=== PATIENT | female | born 1950 | race Caucasian/White ===

== ENCOUNTER 2018-08-31 07:34 | Day surgery (SDC) | payer MEDICARE ==
[~2018-08-31] VITALS: Ht 165.1 cm; Wt 103.0 kg
[~2018-08-31 07:34] MED LIST: LISINOPRIL20 MG PO
--- NOTE | 2018-08-31 10:00 | NUR ---
08/31/18 Aishwarya Harrington 0983 PATIENT ARRIVES TO PACU SLEEPING, AWAKENS WITH VERBAL STIMULI, ANSWERS QUESTIONS APPROPRIATLY. RESP EVEN AND UNLABORED, ROOM AIR SATS >90%.
--- NOTE | 2018-09-01 06:37 | OR ---
[facility] [address], [place] [address] Signed DATE OF OPERATION: 08/31/2018 SURGEON: Janice Nicolas MD PREOPERATIVE DIAGNOSIS: Screening. POSTOPERATIVE DIAGNOSES: 1. Minimal sigmoid diverticulosis. 2. 4 mm polyp at 18 cm (rectosigmoid junction). 3. Minimal internal hemorrhoids. PROCEDURE PERFORMED: Colonoscopy with hot biopsy. ESTIMATED BLOOD LOSS: None. INDICATIONS: Bailey is a 68-year-old female, asked to see me for her initial screening colonoscopy. She has no lower GI complaints. There is no family history of colon cancer or polyps. She has helped her through three prior colonoscopies. Consequently, they are familiar with the whole process. I gave them a pamphlet in the office on colonoscopy and we looked at that together. They understand the risks including, but not limited to gas, bloating, crampy abdominal pain, bleeding, perforation, requiring surgery, and missed diagnosis. They also understand the need for IV conscious sedation. They have expressed understanding and wished to proceed. DESCRIPTION OF PROCEDURE: Bailey was taken into our endoscopy suite and placed in the left lateral decubitus position. She was given 4 mg of Versed and 100 mcg of fentanyl to cover the case. A digital rectal exam was performed. After this, the adult colonoscope was introduced and advanced all around into the cecum under direct visualization of camera without difficulty. Her prep was good. Pictures were taken throughout for photodocumentation. We could easily see the appendiceal orifice and the ileocecal valve. As the scope was withdrawn, we could see she has some diverticula in the sigmoid colon. They were aamhgtf-qf-wvxtrruo in size, gxigtla-xx-koveitwh in number, and scattered about. She had just a tiny 4 mm polyp at 18 cm involving the rectosigmoid junction. It was easily removed with hot biopsy forceps. The rectum itself was unremarkable. Upon retroflexion of scope, she has very minimal internal hemorrhoid tissue. After this, the gas was Electronically Signed By: JANICE NICOLAS MD 09/01/18 0637 PATIENT NAME: BAILEY RUSSO OPERATIVE REPORT DATE OF : 54 REPORT #: [id number] PHYSICIAN: JANICE NICOLAS MD PCP: GEORGINA CLAIRE PA-C REPORT IS CONFIDENTIAL AND NOT TO BE RELEASED WITHOUT AUTHORIZATION [address] [address] Signed suctioned out. The colonoscope removed. Bailey tolerated the procedure quite well. RECOMMENDATIONS: Bailey will follow up in my office in 7 to 14 days to review her pathology results. MD ROCIO Toledo/SHAGUFTAL /[id number] cc: MD Georgina Toledo PA-C Copies: JANICE NICOLAS MD, CHLOE K PA-C ~ Electronically Signed By: JANICE NICOLAS MD 09/01/18 0637 PATIENT NAME: BAILEY RUSSO OPERATIVE REPORT DATE OF : 54 REPORT #: [id number] PHYSICIAN: JANICE NICOLAS MD PCP: GEORGINA CLAIRE PA-C REPORT IS CONFIDENTIAL AND NOT TO BE RELEASED WITHOUT AUTHORIZATION
== END 2018-08-31 10:40 | disposition home or self-care (01) ==
LOC: OPS 07:34 → DS 07:34 → OPS 09:00 → DS 09:00 → OPS 10:40
PROVIDERS: Colon & Rectal Surgery
PROC: 0DBE8ZZ Excision of Large Intestine, Via Natural or Artificial Opening Endoscopic (ICD-10-PCS; principal; 2018-08-31 09:00)
DX: Z12.11 Encounter for screening for malignant neoplasm of colon (principal); K63.5 Polyp of colon; K64.8 Other hemorrhoids; K57.30 Diverticulosis of large intestine without perforation or abscess without bleeding; I10 Essential (primary) hypertension; E66.9 Obesity, unspecified; Z68.36 Body mass index [BMI] 36.0-36.9, adult
CPT/HCPCS: 99153; G0500; J2250; J3010; J7120

== ENCOUNTER 2025-01-16 05:40 | Day surgery (SDC) | payer MEDICARE, OTHER ==
[~2025-01-16] VITALS: Ht 167.6 cm; Wt 99.0 kg
[~2025-01-16 05:40] MED LIST changes: +LACTATED RINGER'S 1,000 ML IV SCH; +LOSARTAN POTAS100 MG PO; +MULTI VITAMIN1 EACH PO; +RED YEAST RICE55 MG PO; +VITAMIN C500 M4 PO; +VITAMIN E134 M1 PO
[2025-01-16] MEDS ORDERED: ROPIVACAINE IN 0.9% SOD CHL/PF 545 ML ELS.PMP.HR IRRIGATION ONE (05:54)
[2025-01-16 06:08] VITALS: BP 143/82
[2025-01-16] MEDS ORDERED: Ropivacaine HCl 0.5% 30 ML VIAL ONE (06:32)
[2025-01-16] MEDS ORDERED: SODIUM CHLORIDE 0.9% 20 ML IV ONE (06:32)
[2025-01-16] MEDS ORDERED: MIDAZOLAM HCL 2 MG/2 ML VIAL ONE (06:32)
[2025-01-16] MEDS ORDERED: LIDOCAINE HCL 2% 5 ML SDV ONE (06:33)
[2025-01-16] MEDS ORDERED: fentaNYL citrate 100 MCG/2 ML VIAL ONE (06:37)
[2025-01-16] MEDS ORDERED: DEXAMETHASONE SOD PHOS 10 MG/ML VIAL ONE (06:39)
[2025-01-16] MEDS ORDERED: PANTOPRAZOLE SODIUM 40 MG TABEC PO SCH (07:00)
[2025-01-16] MEDS ORDERED: CEFAZOLIN SODIUM 2 GM in SODIUM CHLORIDE 0.9% 100 ML IV SCH ×2 (07:00→15:00)
[2025-01-16] MEDS ORDERED: IBLOOD GLUCOSE TEST STRIP 1 EA TEST VI PRN ×2 (07:00→08:30)
[2025-01-16] MEDS ORDERED: ROPIVACAINE IN 0.9% SOD CHL/PF 545 ML ELS.PMP.HR IRRIGATION SCH (07:00)
[2025-01-16] MEDS ORDERED: INTRA-ARTICULAR ANALGESIC INJECTION XX SCH (07:00)
[2025-01-16] MEDS ORDERED: LIDOCAINE HCL 1% 5 ML SDV INJ ONE (07:00)
[2025-01-16] MEDS ORDERED: TRANEXAMIC ACID IN NACL,ISO-OS 1,000 MG/100 ML PIGGYBACK IV SCH ×3 (07:00→10:40)
[2025-01-16] MEDS ORDERED: OXYCODONE HCL 5 MG TAB PO SCH (07:00)
[2025-01-16] MEDS ORDERED: GABAPENTIN 600 MG TAB PO SCH (07:00)
[2025-01-16] MEDS ORDERED: OXYCODONE HCL 5 MG TAB PO PRN (07:15)
[2025-01-16] MEDS ORDERED: KETOROLAC TROMETHAMINE 30 MG/ML VIAL IV PRN (07:15)
[2025-01-16] MEDS ORDERED: TRANEXAMIC ACID 1,000 MG/10 ML AMP ONE (07:37)
[2025-01-16] MEDS ORDERED: PHENYLEPHRINE HCL IN 0.9% NACL 1 MG/10 ML SYR ONE ×4 (07:47→08:03)
[2025-01-16] MEDS ORDERED: LACTATED RINGER'S 1,000 ML IV ONE (07:51)
[2025-01-16] MEDS ORDERED: ASPIRIN325 MG PO (08:29)
[2025-01-16] MEDS ORDERED: CELECOXIB200 MG PO (08:29)
[2025-01-16] MEDS ORDERED: OXYCODONE HCL5 M1 PO (08:29)
[2025-01-16] MEDS ORDERED: TRANEXAMIC ACI650 MG PO (08:29)
[2025-01-16] MEDS ORDERED: SENNA LAX8.6 MG PO (08:30)
[2025-01-16] MEDS ORDERED: NALOXONE HCL 0.4 MG SYR IV PRN (08:30)
[2025-01-16] MEDS ORDERED: fentaNYL citrate 50 MCG/ML SDV IV PRN (08:30)
[2025-01-16] MEDS ORDERED: HYDROmorphone HCL 1 MG/ML SYR IV PRN (08:30)
[2025-01-16] MEDS ORDERED: PROCHLORPERAZINE EDISYLATE 10 MG/2 ML VIAL IV PRN (08:30)
--- NOTE | 2025-01-16 08:54 | NUR ---
01/16/25 0854 Mag Romo LE 0843: PT ARRIVES TO PACU DROWSY, BUT REACTIVE. REPROT RECEIVED FROM HEEL SLICKER AND TRANSFER COORDINATOR. VANESSA 0844: IMAGING IS CALLED FOR AN XRAY.
[2025-01-16] MEDS ORDERED: ASPIRIN 325 MG TAB PO SCH (09:00)
[2025-01-16] MEDS ORDERED: TRANEXAMIC ACID 650 MG TABLET PO SCH (09:00)
[2025-01-16 09:22] VITALS: BP 111/56
--- NOTE | 2025-01-16 10:14 | NUR ---
jairon 0921-PT BACK TO ROOM FROM PACU ON . RECEIVED REPORT FROM MARIA URRUTIA. PT IS AWAKE. RESP EVEN AND UNLABORED. CRYO CUFF IN PLACE AND RUNNING. ON-Q PUMP SET AT 4. PROVIDED PT WITH WATER AND CRACKERS. FAMILY IN ROOM. NO OTHER NEEDS AT THIS TIME. CALL LIGHT WITHIN REACH.
[2025-01-16 10:23] VITALS: BP 113/48
--- NOTE | 2025-01-16 11:02 | NUR ---
LE 1021-PT LAYING IN BED WATCHING TV. RESP EVEN AND UNLABORED. PT DENIES PAIN AND NAUSEA. CRYO CUFF IN PLACE AND RUNNING. ON-Q PUMP SET AT 4. PT TAKING SIPS OF WATER. NO OTHER NEEDS AT THIS TIME. CALL LIGHT WITHIN REACH.
[2025-01-16 11:25] VITALS: BP 115/60
[2025-01-16 12:42] VITALS: BP 145/71
--- NOTE | 2025-01-16 14:16 | OR ---
[facility] [address] [place] [place], [place] [address] Signed DATE OF OPERATION: 01/16/2025 SURGEON: Ugo Yang MD PREOPERATIVE DIAGNOSIS: Severe degenerative joint disease, left knee. POSTOPERATIVE DIAGNOSIS: Severe degenerative joint disease, left knee. PROCEDURE PERFORMED: Left total knee arthroplasty with Brant. SCALE MANAGER: Kerry Buregr PA-C. Kerry was present and critical for all portions of procedure. ANESTHESIA: Spinal. BLOOD LOSS: 175 mL. TOURNIQUET TIME: Zero. IMPLANTS: Sirisha Triathlon size 5, 10 mm polyethylene and a 32 mm patella. BRIEF HISTORY: Bailey is a 74-year-old female with progressive worsening of osteoarthritis in both knees, worse on the left. Risks and benefits of operative treatment were discussed with her and she elected to proceed. DESCRIPTION OF PROCEDURE: Once consent was obtained she was taken to the operating room. After adequate anesthesia, she was placed on the operating table with a hip bump. The leg was prepped and draped in a standard sterile fashion. The knee was approached through standard anterior midline incision, carried through skin and subcutaneous tissue. Skin flaps were developed medially and laterally. A low mid vastus arthrotomy was performed and Electronically Signed By: UGO YANG MD 01/16/25 1416 PATIENT NAME: BAILEY RUSSO OPERATIVE REPORT DATE OF : 54 REPORT #: [id number] PHYSICIAN: UGO YANG MD PCP: LEXIS CLAIRE PA-C REPORT IS CONFIDENTIAL AND NOT TO BE RELEASED WITHOUT AUTHORIZATION [facility] [address] [place], [place] [address] Signed all bleeders were cauterized as we went. The MCL was elevated of a sleeve around the posteromedial corner. The anterior horns of the menisci were transected as was the ACL. PCL was found to be intact. The navigation computer arrays were then placed in the distal femur and proximal tibia. The leg was registered with the computer followed by the fine anatomic points of the knee. Varus and valgus testing were undertaken and significant medial tightness was noted. The adjustments were then made to the prosthesis positioning to balance the ligaments. Once this was completed, the robot was brought in, four straight cuts and two ankle cuts were made with care taken to protect the patellar tendon and MCL. The bone remnants removed as were any remaining osteophytes. Posterior osteophytes removed off the femur. No posterior release was performed however. The trials were then positioned, knee was taken from 0 to 120 degrees of flexion with good stability throughout. The patella was cut, sized and drilled for a 32 mm patella. The distal femoral drill holes were completed. The proximal tibia was completed using the keel punch followed by the four drill holes. The prosthesis was obtained. The tibia was impacted until was seated flush on the bone. The polyethylene was snapped into position. The femur was impacted. The knee was extended and loaded. The patella was clamped into position until was seated flush on the patella. The patellar tracking was noted to be good. The knee was then copiously irrigated with one bottle of Surgiphor followed by normal saline. The periarticular soft tissues were injected with 80 mL ropivacaine and Toradol mixture. The On-Q pain pump was percutaneously placed into the adductor canal from suprapatellar pouch. The arthrotomy was then closed using a combination of #2 FiberWire, #1 Stratafix, subcutaneous tissue with 0 Stratafix and skin with 3-0 Stratafix. The wound was then dressed with an Acticoat-7 dressing, ABDs and PREMA wrap. She tolerated the procedure well. All sponge, needle, and instrument counts were correct. Ugo Yang MD BA/MODL /[id number] Copies: ~ Electronically Signed By: UGO YANG MD 01/16/25 1416 PATIENT NAME: BAIELY RUSSO OPERATIVE REPORT DATE OF : 54 REPORT #: [id number] PHYSICIAN: UGO YANG MD PCP: LEXIS CLAIRE PA-C REPORT IS CONFIDENTIAL AND NOT TO BE RELEASED WITHOUT AUTHORIZATION
[2025-01-16 14:20] VITALS: BP 140/73
--- NOTE | 2025-01-16 16:08 | NUR ---
LE 1125-PT LAYING IN BED AWAKE. RESP EVEN AND UNLABORED. DENIES PAIN AND NAUSEA. CRYO CUFF IN PLACE AND RUNNING. PT TAKING SIPS OF WATER. NO OTHER NEEDS AT THIS TIME. CALL LIGHT WITHIN REACH.
--- NOTE | 2025-01-16 16:09 | NUR ---
LE 1230-PT UP TO BEDSIDE COMMODE. PT VOIDS 250ML OF YELLOW URINE. LE 1235-PT MOVES SELF BACK TO BED. LE 1242-PT IS LAYING IN BED. RESP EVEN AND UNLABORED. DENIES PAIN AND NAUSEA. CRYO CUFF IN PLACE AND RUNNING. ON-Q PUMP SET AT 4. NO OTHER NEEDS AT THIS TIME. FAMILY IN ROOM. PT DECLINES LUNCH AT THIS TIME. CALL LIGHT WITHIN REACH.
--- NOTE | 2025-01-16 16:21 | NUR ---
VANESSA 1315-PHYSICAL THERAPY IN ROOM WITH PTSage
--- NOTE | 2025-01-16 17:11 | NUR ---
LE 1405-PT BACK TO ROOM. PT WILL GET DRESSED WITH THE HELP OF [facility]. LE 1421-PT SITTING AT BEDSIDE. VSS. DENIES PAIN AND NAUSEA. ON-Q PUMP AT 4.
--- NOTE | 2025-01-16 17:12 | NUR ---
LE 1435-WENT OVER DISCHARGE INSTRUCTIONS WITH PT, HER DAUGHTER, AND HER . WENT OVER POSTOP MEDICATIONS. ALL QUESTIONS ANSWERED. LE 1440-PT AMBULATES WITH WALKER TO WHEELCHAIR AND RIDE PROVIDED TO FRONT OF HOSPITAL WHERE WAS WAITING WITH THE CAR.
[2025-01-16] MEDS ORDERED: SENNOSIDES 1 TAB PO SCH (21:00)
[2025-01-17] MEDS ORDERED: CELECOXIB 200 MG CAP PO SCH (08:00)
[2025-01-17] MEDS ORDERED: TRANEXAMIC ACID 650 MG TABLET PO SCH (09:00)
== END 2025-01-16 14:38 | disposition home or self-care (01) ==
LOC: DS 05:40
PROVIDERS: ATTEND Specialist
PROC: 3E0T3BZ Introduction of Anesthetic Agent into Peripheral Nerves and Plexi, Percutaneous Approach (ICD-10-PCS; 2025-01-16)
PROC: 0SRD0JZ Replacement of Left Knee Joint with Synthetic Substitute, Open Approach (ICD-10-PCS; principal; 2025-01-16 07:00)
DX: M17.12 Unilateral primary osteoarthritis, left knee (principal); I10 Essential (primary) hypertension; E78.5 Hyperlipidemia, unspecified; H91.90 Unspecified hearing loss, unspecified ear; Z79.899 Other long term (current) drug therapy; Z87.891 Personal history of nicotine dependence
CPT/HCPCS: 0055T; 27447; 64447; 01402; 64473; 73560; 97110; 97161; 97530; A9270; C1713; C1776; J0165; J0688; J1100; J2003; J2250; J2405; J2704; J2795; J3010; J7121